=== PATIENT | male | born 1975 ===

== ENCOUNTER 2017-02-06 03:50 | Emergency (ER) | payer MEDICAID ==
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
[2017-02-06 04:12] VITALS: BP 120/70; PULSE 78; RESP 14; TEMP 97.7; O2SAT 99
== END 2017-02-06 04:45 | disposition home or self-care (01) ==
LOC: C.ER 03:50
DX: Z04.8 Encounter for examination and observation for other specified reasons (principal)

== ENCOUNTER 2017-02-07 01:04 | Emergency (ER) | payer MEDICAID ==
[2017-02-07 01:24] VITALS: BP 110/78; PULSE 88; RESP 20; TEMP 97.6; O2SAT 97
== END 2017-02-07 01:28 | disposition left against medical advice (07) ==
LOC: C.ER 01:04
DX: Z02.89 Encounter for other administrative examinations (principal); M79.601 Pain in right arm